=== PATIENT | male | born 1975 | race Caucasian/White ===

== ENCOUNTER 2022-05-03 16:21 | Outpatient (CLI) | payer OTHER ==
[~2022-05-03] VITALS: Ht 185.4 cm; Wt 106.8 kg
[~2022-05-03 16:21] MED LIST: ALBUTEROL 90 MCG/ACT 8GM HFA INHALER INH PRN; ALBUTEROL SULFATE 2.5 MG/0.5 ML INH NEB SOLN INH PRN; EPINEPHrine INJ 1 MG/ML 1ML AMP IM PRN; NS 1,000 ML IV SCH; diphenhydrAMINE 50MG/ML VIAL (J1200) IV PRN; methylPREDNISolone 125MG 2ML VIAL IV PRN
[2022-05-03 16:58] VITALS: BP 120/71
[2022-05-03] MEDS ORDERED: BEBTELOVIMAB 175MG 2ML VIAL (EUA) IV ONE (17:00)
[2022-05-03 17:40] VITALS: BP 135/74
== END 2022-05-03 17:53 | disposition home or self-care (01) ==
LOC: M OPCLI4PR 16:21 → M ICU 16:22 → M OPCLI4PR 17:53
PROVIDERS: ATTEND Family Medicine
DX: U07.1 COVID-19 (principal); Z88.5 Allergy status to narcotic agent

== ENCOUNTER → 2022-05-07 | Outpatient (CLI) | payer OTHER ==
[~2022-05-07] MED LIST changes: +ALBU8.5H INH; -ALBUTEROL 90 MCG/ACT 8GM HFA INHALER INH PRN; -ALBUTEROL SULFATE 2.5 MG/0.5 ML INH NEB SOLN INH PRN; +BENZ200C70 PO; +D 50CAP3 PO; -EPINEPHrine INJ 1 MG/ML 1ML AMP IM PRN; -NS 1,000 ML IV SCH; +PRED20TA PO; +VITMTA PO; -diphenhydrAMINE 50MG/ML VIAL (J1200) IV PRN; -methylPREDNISolone 125MG 2ML VIAL IV PRN
== END ==
LOC: M WUC 10:40
PROVIDERS: ATTEND Family Medicine
DX: R05.9 Cough, unspecified (principal)

== ENCOUNTER 2022-05-08 11:35 | Emergency (ER) | payer OTHER ==
[~2022-05-08] VITALS: Ht 185.4 cm; Wt 105.9 kg
[2022-05-08] MEDS ORDERED: PRED20TA PO (11:43)
[2022-05-08] MEDS ORDERED: ALBU8.5H INH (11:43)
[2022-05-08] MEDS ORDERED: D 50CAP3 PO (11:45)
[2022-05-08 14:37] VITALS: O2SAT 99
[2022-05-08] MEDS ORDERED: LORazepam 2 MG/ML VIAL IV STA (15:46)
[2022-05-08] MEDS ORDERED: LORazepam 2 MG/ML VIAL As Ordered ONE (15:54)
[2022-05-08] MEDS ORDERED: NS 500 ML IV ONE (16:00)
[2022-05-08] MEDS: ALBUTEROL 90 MCG/ACT 8GM HFA INHALER INH SCH ×3 (16:07→16:58)
[2022-05-08 16:17] LABS: BASO # 0.1 10^3/uL (0.0-0.2); BASO % 0.7 % (0.0-1.0); EOS % 0.1 % (0.0-3.0); HEMATOCRIT 47.9 % (42.0-52.0); LYMPH # 1.8 10^3/uL (1.5-5.0); LYMPH % 16.3 % (24.0-44.0); MEAN CORPUSCULAR HEMOGLOBIN 30.9 pg (27.0-33.0); MEAN CORPUSCULAR HGB CONC 33.4 g/dl (32.0-36.5); MEAN CORPUSCULAR VOLUME 92.6 fl (80.0-96.0); MONO # 0.4 10^3/uL (0.0-0.8); MONO % 3.9 % (2.0-8.0); NEUTROPHILS # 8.8 10^3/uL (1.5-8.5); NEUTROPHILS % 78.4 % (36.0-66.0); PLATELET COUNT, AUTOMATED 239 10^3/uL (150-450); RED BLOOD COUNT 5.17 10^6/uL (4.30-6.10); WHITE BLOOD COUNT 11.2 10^3/uL (4.0-10.0)
[2022-05-08 16:28] LABS: INR 0.92; PARTIAL THROMBOPLASTIN TIME 25.5 SECONDS (25.9-37.0); PROTHROMBIN TIME 12.7 SECONDS (12.7-14.5)
[2022-05-08 16:50] LABS: D-DIMER QUANT < 270 ng/ml (<500)
[2022-05-08 17:01] LABS: ALBUMIN 4.3 GM/DL (3.2-5.2); ALT/SGPT 51 U/L (12-78); BILIRUBIN,TOTAL 0.4 MG/DL (0.2-1.0); BLOOD UREA NITROGEN 16 MG/DL (7-18); CALCIUM LEVEL 9.7 MG/DL (8.5-10.1); CARBON DIOXIDE LEVEL 26 MEQ/L (21-32); CHLORIDE LEVEL 104 MEQ/L (98-107); CK-MB VALUE MASS < 1.0 NG/ML (<3.6); CPK CREATINE PHOSPHOKINASE 56 U/L (39-308); GLOMERULAR FILTRATION RATE > 60.0 (>60); GLUCOSE, FASTING 112 MG/DL (70-100); LDH LACTATE DEHYDROGENASE 129 U/L (87-241); MB/CK RELATIVE INDEX 1.79 (< OR =4); POTASSIUM SERUM 4.4 MEQ/L (3.5-5.1); SODIUM LEVEL 135 MEQ/L (136-145); TOTAL PROTEIN 7.7 GM/DL (6.4-8.2)
[2022-05-08] MEDS ORDERED: dexameTHASONE 20MG/5ML VIAL (J1100 PER 1MG) IV ONE (19:00)
[2022-05-08] MEDS ORDERED: ISOVUE-370 76% 100ML VIAL As Ordered ONE (19:08)
[2022-05-08] MEDS ORDERED: VITMTA PO (19:13)
[2022-05-08] MEDS ORDERED: HOME MED LIST COMPLETE! XX SCH (19:15)
[2022-05-08] MEDS ORDERED: BENZ200C70 PO (20:33)
[2022-05-08 21:05] VITALS: BP 131/81
== END 2022-05-08 21:08 | disposition home or self-care (01) ==
LOC: M ED 11:35
DX: J06.9 Acute upper respiratory infection, unspecified (principal); B34.9 Viral infection, unspecified; R91.1 Solitary pulmonary nodule; Z86.16 Personal history of COVID-19; Z87.891 Personal history of nicotine dependence; Z88.5 Allergy status to narcotic agent
CPT/HCPCS: 71275; 80053; 82550; 82553; 83605; 83615; 83880; 84484; 85025; 85379; 85610; 85730; 93005; 93041; 96361; 96374; 96375; 99284; J1100; J2060; Q9967

== ENCOUNTER → 2022-09-05 | Outpatient (CLI) | payer OTHER ==
[2022-09-05 08:36] LABS: HEMATOCRIT 47.7 % (42.0-52.0); HEMOGLOBIN 15.8 g/dl (13.5-17.5); MEAN CORPUSCULAR HEMOGLOBIN 30.9 pg (27.0-33.0); MEAN CORPUSCULAR HGB CONC 33.1 g/dl (32.0-36.5); MEAN CORPUSCULAR VOLUME 93.2 fl (80.0-96.0); PLATELET COUNT, AUTOMATED 226 10^3/uL (150-450); RED BLOOD COUNT 5.12 10^6/uL (4.30-6.10); WHITE BLOOD COUNT 8.1 10^3/uL (4.0-10.0)
[2022-09-05 08:49] LABS: HEMOGLOBIN A1c 5.4 % (4.0-6.0)
[2022-09-05 09:00] LABS: ALBUMIN 4.1 G/DL (3.2-5.2); ALKALINE PHOSPHATASE 48 U/L (46-116); ALT/SGPT 28 U/L (7.0-40); AST/SGOT 17 U/L (<34); BILIRUBIN,TOTAL 0.5 MG/DL (0.3-1.2); BLOOD UREA NITROGEN 16 MG/DL (9-23); CALCIUM LEVEL 9.3 MG/DL (8.5-10.1); CARBON DIOXIDE LEVEL 25 MMOL/L (20-31); CHLORIDE LEVEL 107 MMOL/L (98-107); CHOLESTEROL LEVEL 220 MG/DL (<200); CHOLESTEROL RISK RATIO 5.75 (<5); CREATININE FOR GFR 0.74 MG/DL (0.70-1.30); GLOMERULAR FILTRATION RATE > 60.0 (>60); GLUCOSE, FASTING 106 MG/DL (60-100); HDL CHOLESTEROL 38.2 MG/DL (>40); NON-HDL-C 182 MG/DL; POTASSIUM SERUM 4.7 MMOL/L (3.5-5.1); SODIUM LEVEL 138 MMOL/L (136-145); TOTAL PROTEIN 6.8 G/DL (5.7-8.2); TRIGLYCERIDES LEVEL 99 MG/DL (<150)
== END ==
LOC: M LAB 07:27
PROVIDERS: ATTEND Student in an Organized Health Care Education/Training Program
DX: Z13.9 Encounter for screening, unspecified (principal)

== ENCOUNTER → 2025-03-16 | Outpatient (CLI) | payer OTHER ==
[2025-03-16 14:38] LABS: CREATININE FOR GFR 0.86 MG/DL (0.70-1.30); GLOMERULAR FILTRATION RATE > 90.0 (>60)
[2025-03-16 14:39] LABS: RHEUMATOID FACTOR QUANT < 3.5 IU/ML (<14)
[2025-03-16 14:40] LABS: VITAMIN B12 LEVEL 404 PG/ML (211-911)
[2025-03-16 15:13] LABS: ESTIMATED AVERAGE GLUCOSE 117.0 MG/DL (60-110)
== END ==
LOC: M PLALAB 09:47
PROVIDERS: ATTEND Psychiatry & Neurology Neurology
DX: H53.2 Diplopia (principal); H54.7 Unspecified visual loss